=== PATIENT | male | born 1965 | race African-American/Black ===

== ENCOUNTER 2024-12-13 04:02 | Emergency (ER) | payer SELFPAY ==
[~2024-12-13] VITALS: Ht 180.3 cm; Wt 72.4 kg
[2024-12-13 04:23] VITALS: O2SAT 99
[2024-12-13 04:44] VITALS: BP 136/78; PULSE 66; RESP 18; TEMP 36.6; O2SAT 99
[2024-12-13] MEDS ORDERED: SULF1TAB48 MT (05:12)
[2024-12-13] MEDS ORDERED: MUPI1OIN4 TP (05:12)
[2024-12-13] MEDS ORDERED: IBUP-2029 MT (05:12)
[2024-12-13] MEDS ORDERED: CEPH500T MT (05:12)
== END 2024-12-13 05:24 | disposition home or self-care (01) ==
LOC: ER 04:20
DX: L73.9 Follicular disorder, unspecified (principal); E78.00 Pure hypercholesterolemia, unspecified; Z79.899 Other long term (current) drug therapy; Z86.73 Personal history of transient ischemic attack (TIA), and cerebral infarction without residual deficits
CPT/HCPCS: 56405; 99284